=== PATIENT | male | born 2000 | race Caucasian/White ===

== ENCOUNTER 2018-10-20 19:40 | Emergency (ER) | payer OTHER ==
[~2018-10-20] VITALS: Ht 180.3 cm; Wt 68.0 kg
[2018-10-20 20:50] LABS: BILIRUBIN,URINE NEGATIVE (NEGATIVE); CLARITY,URINE HAZY (CLEAR); COLOR,URINE YELLOW (YELLOW); KETONES,URINE NEGATIVE (NEGATIVE); LEUKOCYTE ESTERASE ,URINE TRACE (NEGATIVE); NITRITE,URINE NEGATIVE (NEGATIVE); PROTEIN,URINE DIPSTICK NEGATIVE (NEGATIVE); URINE UROBILINOGEN 0.2 mg/dL (0.2 - 1)
[2018-10-20 20:56] LABS: BACTERIA,URINE MODERATE /HPF
--- NOTE | 2018-10-20 21:46 | Diagnostic Imaging Report ---
EXAM: Scrotal Ultrasound with Duplex INDICATION: right testicle pain, eval for torsion, epididymitis, orchitis COMPARISON: None TECHNIQUE: Transverse and longitudinal images were obtained of the scrotum with grayscale imaging, color Doppler and spectral waveform analysis. FINDINGS: Right testis: Size: 4.5 x 2.6 x 3.5 cm, normal in size. Echogenicity: Normal Mass/Cysts: None Left testis: Size: 4.9 x 2.8 x 3.3 cm, normal in size. Echogenicity: Normal Mass/Cysts: None Epididymis: Appearance: Increased vascularity of the right epididymal tail. Left normal Mass/Cysts: None Extratesticular: Masses: None Hydrocele: None Varicocele: Increased vascularity with valsalva in the right pampiniform plexus on the right. None on the left. Doppler: Normal arterial flow to both testes and symmetrical flow on color Doppler evaluation is seen. No evidence of testicular torsion. IMPRESSION: 1. No evidence of testicular torsion. 2. Increased vascularity of the right epididymal tail reflecting epididymitis. 3. Small right sided varicocele raising the possibility of obstructing process of the right gonadal vein which can be further evaluated with CT abdomen and pelvis with contrast. Signed by: DR. Smooth Hobbs MD on 10/20/2018 9:42 PM
[2018-10-20] MEDS ORDERED: KETOROLAC TROMETHAMINE 30 MG/ML VIAL IV STA (22:32)
[2018-10-20 22:44] LABS: BASOPHILS # (AUTO) 0.1 (0.0-0.1); BASOPHILS % 0.5 % (0.0-1.0); EOSINOPHILS # (AUTO) 0.2 (0.0-0.4); EOSINOPHILS % 1.8 % (0.0-6.0); HEMATOCRIT 47.2 % (38.2-49.6); HEMOGLOBIN 16.6 g/dL (14.0-18.0); LYMPHOCYTES # (AUTO) 1.8 (1.0-3.2); LYMPHOCYTES % 13.9 % (18.0-39.1); MEAN CORPUSCULAR HEMOGLOBIN 30.2 pg (28-32); MEAN CORPUSCULAR HGB CONC 35.2 g/dL (31-35); MONOCYTES % 7.8 % (4.4-11.3); NEUTROPHILS # (AUTO) 9.8 (2.1-6.9); NEUTROPHILS % 75.5 % (38.7-80.0); PLATELET COUNT 321 x10e3/uL (140-360); RED BLOOD COUNT 5.49 x10e6/uL (4.3-5.7); RED CELL DISTRIBUTION WIDTH 11.9 % (11.7-14.4)
[2018-10-20 23:00] LABS: ALANINE AMINOTRANSFERASE 18 IU/L (0-55); ALBUMIN 4.4 g/dL (3.5-5.0); ALBUMIN/GLOBULIN RATIO 1.6 (0.8-2.0); ALKALINE PHOSPHATASE 73 IU/L (40-150); ANION GAP 14.7 mmol/L (8-16); BLOOD UREA NITROGEN 14 mg/dL (7-26); BUN/CREATININE RATIO 14 (6-25); CALCIUM 9.1 mg/dL (8.4-10.2); CARBON DIOXIDE 27 mmol/L (22-29); CHLORIDE 97 mmol/L (98-107); CREATININE, SERUM 0.97 mg/dL (0.72-1.25); EST GLOMERULAR FILTRATION RATE > 60 ML/MIN (60-); GLUCOSE 91 mg/dL (74-118); POTASSIUM 3.7 mmol/L (3.5-5.1); SODIUM 135 mmol/L (136-145)
--- NOTE | 2018-10-20 23:05 | NUR ---
REPORT GIVEN TO ADITHYA SINHA [employer]PECTOR NURSE FOR CONTINUTITY OF CARE
--- NOTE | 2018-10-21 00:29 | Diagnostic Imaging Report ---
EXAM: CT Abdomen and Pelvis WITH contrast INDICATION: TO EVAL FINDINGS ON ULTRASOUND. Right varicocele. COMPARISON: Testicular ultrasound 10/20/2018 TECHNIQUE: Abdomen and pelvis were scanned utilizing a multidetector helical scanner from the lung base to the pubic symphysis after administration of IV contrast. Coronal and sagittal reformations were obtained. Routine protocol was performed. Scan was performed when during portal venous phase. IV CONTRAST: 100 mL of Isovue-370 ORAL CONTRAST: Water COMPLICATIONS: None RADIATION DOSE: Total DLP: 209.3 mGy*cm Estimated effective dose: (DLP x 0.015 x size factor) mSv CTDIvol has been reviewed. It is below the limits set by the Radiation Protocol Committee (RPC). FINDINGS: LINES and TUBES: None. LOWER THORAX: Unremarkable HEPATOBILIARY: No focal hepatic lesions. No biliary ductal dilation. GALLBLADDER: No radio-opaque stones or sludge. No wall thickening. SPLEEN: Enlarged measuring 13.9 cm in length. PANCREAS: No focal masses or ductal dilatation. ADRENALS: No adrenal nodules KIDNEYS/URETERS: Kidneys enhance symmetrically. No hydronephrosis. No cystic or solid mass lesions. No stones. GI TRACT: No abnormal distention, wall thickening, or evidence of bowel obstruction. Appendix is normal. PELVIC ORGANS/BLADDER: Relatively increased area of enhancement within the right scrotal sac likely related to epididymitis seen on scrotal ultrasound. Otherwise, unremarkable. LYMPH NODES: No lymphadenopathy. VESSELS: Unremarkable. PERITONEUM / RETROPERITONEUM: No free air or fluid. BONES: Unremarkable. SOFT TISSUES: Unremarkable. IMPRESSION: 1. No lymphadenopathy or mass along the course of the right gonadal vein. 2. No acute intra-abdominal abnormalities. 3. Splenomegaly. Signed by: DR. Smooth Hobbs MD on 10/21/2018 12:26 AM
[2018-10-21 01:20] VITALS: BP 136/86
[2018-10-21] MEDS ORDERED: IOPAMIDOL 370 MG/ML 200 ML INFUS..BTL INJ ONE (10:11)
[2018-10-21] MEDS ORDERED: SODIUM CHLORIDE 0.9% 50ML 50 ML ONE (10:11)
== END 2018-10-21 01:31 | disposition home or self-care (01) ==
LOC: ER 19:40
DX: N50.811 Right testicular pain (principal); N45.1 Epididymitis
CPT/HCPCS: 36415; 74177; 76870; 80053; 81001; 85025; 93976; 99284; J1885; Q9967